=== PATIENT | female | born 1985 | race Caucasian/White ===

== ENCOUNTER → 2020-05-04 | Outpatient (CLI) | payer OTHER ==
[~2020-05-04] MED LIST: ISOVUE-370 76% 100ML VIAL As Ordered ONE
--- NOTE | 2020-05-04 13:21 | REP ---
INDICATION: INFERTILITY. COMPARISON: None. TECHNIQUE: Realtime fluoroscopic evaluation. FINDINGS: Uterus has a normal configuration. The right fallopian tube fills normally and demonstrates spillage into the right hemipelvis consistent with patency. The left fallopian tube is vaguely identified but suspected to be patent. Total fluoroscopic time 1.2 minutes. IMPRESSION: Normal configuration to the uterus. Patent right fallopian tube. Presumed patent left fallopian tube. <Electronically signed by López Sanders > 05/04/20 [id number]
== END ==
LOC: M RADPRO 12:18
PROVIDERS: ATTEND Obstetrics & Gynecology
DX: N97.9 Female infertility, unspecified (principal)
CPT/HCPCS: 74740; Q9967